=== PATIENT | male | born 1955 | race American Indian/Alaskan Native ===

== ENCOUNTER → 2017-10-01 | Outpatient (CLI) | payer OTHER | LOC: SLR 11:00 | PROVIDERS: ATTEND Otolaryngology | DX: G47.30 Sleep apnea, unspecified (principal); R40.0 Somnolence | CPT/HCPCS: G0399 ==

== ENCOUNTER 2017-11-06 11:00 | Outpatient (CLI) | payer OTHER | END 2017-11-06 11:01 | disposition home or self-care (01) | LOC: SLR 11:00 | PROVIDERS: ATTEND Otolaryngology | DX: G47.33 Obstructive sleep apnea (adult) (pediatric) (principal) | CPT/HCPCS: 95811 ==

== ENCOUNTER 2018-12-23 10:27 | Emergency (ER) | payer SELFPAY ==
[2018-12-23 10:39] VITALS: BP 143/93
--- NOTE | 2018-12-23 11:00 | XRay Report ---
RIGHT HAND, 3 VIEWS INDICATION: Fell in shower this morning, right fifth finger pain.. COMPARISON: None. IMPRESSION: No acute osseous or soft tissue abnormality. No significant DJD. Signer Name: Gordon Gold Jr, MD Signed: 12/23/2018 10:56 AM Workstation Name: [id number]
[2018-12-23] MEDS ORDERED: XYLOCAINE 1% MPF 5 mL INFILTRATI ONE (11:45)
--- NOTE | 2018-12-23 11:49 | Emergency Department Report ---
HPI - General Chief Complaint: Wound/Laceration Time Seen by Provider: 12/23/18 11:36 - HPI HPI: 63-year-old male presents to the emergency department with a left lip laceration and pain to the right pinky finger after falling in the shower just prior to arrival. He denies any loss of consciousness. Unknown last tetanus booster. He has not taken anything for his symptoms prior to presentation. Denies any past medical history. ED Past Medical Hx - Past Medical History Previous Medical History?: No - Surgical History Past Surgical History?: No - Social History Smoking Status: Never Smoker Substance Use Type: None ED Review of Systems ROS: Stated complaint: LFT SIDE LIP INJURY/PAIN Other details as noted in HPI Comment: All other systems reviewed and negative Eyes: denies: eye pain, vision change ENT: denies: ear pain, throat pain Cardiovascular: denies: chest pain, palpitations Gastrointestinal: denies: abdominal pain, vomiting Musculoskeletal: arthralgia (right pinky finger). denies: back pain Skin: other (lip laceration). denies: rash Neurological: denies: headache, weakness, numbness Physical Exam - Physical Exam Vital Signs: Vital Signs 12/23/18 10:37 Temperature 98.9 F Pulse Rate 95 H Respiratory 18 Rate Blood Pressure 143/93 [Left] O2 Sat by Pulse 99 Oximetry Physical Exam: GENERAL: The patient is well-developed well-nourished. HENT: Normocephalic. Atraumatic. Patient has moist mucous membranes. EYES: Extraocular motions are intact. Pupils equal reactive to light akbar aterally. NECK: Supple. Trachea is midline. CHEST/LUNGS: Clear to auscultation. There is no respiratory distress noted. HEART/CARDIOVASCULAR: Regular. There is no tachycardia. There is no murmur. ABDOMEN: Abdomen is soft, nontender. Patient has normal bowel sounds. There is no abdominal distention. SKIN: There is a 2 cm laceration to the left upper lip that does cross the vermilion border. It is linear and appears superficial. NEURO: The patient is awake, alert, and oriented. The patient is cooperative. The patient has no focal neurologic deficits. The patient has normal speech. MUSCULOSKELETAL: There is some tenderness to palpation along the right fifth/pinky finger but no obvious deformity. There is no limitation range of motion. ED Course Vital Signs 12/23/18 10:37 Temperature 98.9 F Pulse Rate 95 H Respiratory 18 Rate Blood Pressure 143/93 [Left] O2 Sat by Pulse 99 Oximetry - Laceration /Wound Repair Face Wound Location: face (left upper lip) Wound Length (cm): 2 Wound's Depth, Shape: linear Wound Explored: clean Irrigated w/ Saline (ccs): 50 Anesthesia: 1% Lidocaine Volume Anesthetic (ccs): 2 Wound Repaired With: sutures Suture Size/Type: 6:0, proline Number of Sutures: 6 Sterile Dressing Applied?: Yes ED Medical Decision Making - Medical Decision Making This patient presents with a left lip laceration and right pinky finger pain after falling in the shower just prior to arrival. The laceration was repaired with 6 simple interrupted sutures. It did cross the vermilion border but it approximated well. I explained to the patient that he may have a slight scar. There does not appear to be any distortion of his landmarks and he was given a referral for facial plastics in case he would like to follow-up. The x-ray of his right hand and pinky finger did not show any fracture, dislocation or any acute process. We discussed how to clean the wounds/laceration and monitor for infection. He has been instructed to follow up with primary care. He was given a referral for an orthopedist regarding his finger pain. He will return to the ER with any worsening of his symptoms or any acute distress. - Differential Diagnosis finger fracture, finger sprain, lip laceration, facial fractures Critical Care Time: No Critical care attestation.: If time is entered above; I have spent that time in minutes in the direct care of this critically ill patient, excluding procedure time. ED Disposition Clinical Impression: Pain in finger of right hand Lip laceration Qualifiers: Encounter type: initial encounter Qualified Code(s): S01.511A - Laceration without foreign body of lip, initial encounter Fall Qualifiers: Encounter type: initial encounter Qualified Code(s): W19.XXXA - Unspecified fall, initial encounter Disposition: DC-01 TO HOME OR SELFCARE Is pt being admited?: No Condition: Stable Instructions: Suture Care (ED), Laceration (ED), Fall Prevention (ED) Additional Instructions: Please follow-up with your primary care physician in the next few days. I am giving him a referral for a local orthopedist, Dr. Juarez, to follow up regarding your right pinky finger pain. I am also giving him a referral for a local plastic surgeon, Dr. ricketts, in case she would like further evaluation of your lip laceration for any further cosmetic repair. The sutures will need to be removed in 7 days and can be done so with your primary care physician, at any urgent care, or in the emergency department. Make sure you are seen sooner with any signs or symptoms of infection such as increased swelling, surrounding redness, increased pain, development of fever, or discharge of pus. The area can be cleaned with soap and water and then should be kept dry. Referrals: TL GREENBERG MD [Primary Care Provider] - 2-3 Days CLARA JUAREZ MD [Staff Physician] - 3-5 Days CATHY RICKETTS JR, MD [Staff Physician] - 3-5 Days Time of Disposition: 12:28
== END 2018-12-23 12:48 | disposition home or self-care (01) ==
LOC: ED 10:27
DX: S01.511A Laceration without foreign body of lip, initial encounter (principal); M79.644 Pain in right finger(s); Z88.2 Allergy status to sulfonamides; W01.118A Fall on same level from slipping, tripping and stumbling with subsequent striking against other sharp object, initial encounter; Y93.89 Activity, other specified; Y92.89 Other specified places as the place of occurrence of the external cause; Y99.8 Other external cause status

== ENCOUNTER 2021-03-21 09:14 | Outpatient (CLI) | payer OTHER ==
--- NOTE | 2021-03-21 10:22 | XRay Report ---
ABDOMEN 1 VIEW INDICATION / CLINICAL INFORMATION: CALCULUS OF KIDNEY N20.0. COMPARISON: None available. FINDINGS/CONCLUSION: Bowel gas pattern is nonobstructive. No radiopaque stones in the region of the kidneys. Multiple calc ifications in the pelvis may represent phleboliths. Signer Name: Sam Gonzalez MD Signed: 03/21/2021 10:17 AM Workstation Name: [id number]
== END 2021-03-21 09:15 | disposition home or self-care (01) ==
LOC: SPVIMAG 09:14
PROVIDERS: ATTEND Urology
DX: N20.1 Calculus of ureter (principal)
CPT/HCPCS: 74018